=== PATIENT | female | born 1945 | race Caucasian/White ===

== ENCOUNTER → 2016-11-16 | Outpatient (CLI) | payer MEDICARE, BC ==
[2016-11-16 13:22] LABS: HEMATOCRIT 37.2 % (37.0-47.0); HEMOGLOBIN 12.6 g/dl (12.5-16.0); MEAN CELL VOLUME 89 fl (80.0-100.0); MEAN CORPUSCULAR HEMOGLOBIN 30 pg (27.0-31.0); MEAN CORPUSCULAR HGB CONC 34 g/dl (33.0-37.0); MEAN PLATELET VOLUME 9.4 fl (7.4-10.4); PLATELET COUNT 274 K/mm3 (130-400); RED BLOOD COUNT 4.17 M/mm3 (4.10-5.30); REDCELL DISTRIBUTION WIDTH-CV 13.8 % (11.5-14.5); WHITE BLOOD COUNT 6.6 K/mm3 (4.8-10.8)
== END ==
LOC: COL.LAB 12:22
PROVIDERS: Specialist
DX: Z01.812 Encounter for preprocedural laboratory examination (principal)

== ENCOUNTER 2018-12-12 15:45 | Outpatient (RCR) | payer MEDICARE, BC | END 2018-12-12 16:02 | disposition home or self-care (01) | LOC: WSPT 15:45 | DX: M25.512 Pain in left shoulder (principal) ==

== ENCOUNTER 2024-03-24 13:31 | Inpatient (IN) | payer MEDICARE, BC ==
[~2024-03-24] VITALS: Ht 162.6 cm; Wt 69.4 kg
[2024-03-24] MEDS ORDERED: NS 1,000 ML IV ONE (14:15)
[2024-03-24 14:23] LABS: BASO # 0.1 K/mm3 (0.0-0.2); BASO % 0.4 % (0.0-2.0); EOS % 0.2 % (0.0-4.0); GRAN # 9.6 K/mm3 (1.4-6.5); GRAN % 73.3 % (42.2-75.2); HEMATOCRIT 37.9 % (37.0-47.0); HEMOGLOBIN 12.9 g/dl (12.5-16.0); LYMPH # 2.4 K/mm3 (1.2-3.4); LYMPH % 18.6 % (20.0-51.0); MEAN CELL VOLUME 88 fl (80.0-100.0); MEAN CORPUSCULAR HEMOGLOBIN 30 pg (27-31); MEAN CORPUSCULAR HGB CONC 34 g/dl (33.0-37.0); MEAN PLATELET VOLUME 9.3 fl (7.4-10.4); MONO # 0.9 K/mm3 (0.1-0.6); MONO % 7.1 % (1.7-9.3); PLATELET COUNT 311 K/mm3 (130-400); RED BLOOD COUNT 4.31 M/mm3 (4.10-5.30); REDCELL DISTRIBUTION WIDTH-CV 13.6 % (11.5-14.5)
[2024-03-24 14:28] LABS: PROTHROMBIN TIME 11.1 SECONDS (9.7-12.8)
[2024-03-24 14:37] LABS: ALANINE AMINOTRANSFERASE 21 U/L (0-55); ALBUMIN 4.3 g/dL (3.4-4.8); ALKALINE PHOSPHATASE 88 U/L (40-150); ANION GAP 12 mmol/L (7-16); AST,SGOT 29 U/L (5-34); BILIRUBIN,TOTAL 0.4 mg/dL (0.2-1.2); BLOOD UREA NITROGEN 8 mg/dL (10-20); CALCIUM 9.6 mg/dL (8.4-10.2); CHLORIDE 95 mEq/L (98-107); CREATININE, serum 0.77 mg/dL (0.57-1.11); GLUCOSE 101 mg/dL (70-99); POTASSIUM 3.8 mEq/L (3.5-4.5); SODIUM 129 mEq/L (136-145); TOTAL PROTEIN 7.8 g/dl (6.2-8.1)
[2024-03-24 14:44] LABS: TROPONIN-I < 0.010 ng/mL (0.00-0.033)
[2024-03-24] MEDS ORDERED: Iohexol 300 - 100 ML VIAL IV ONE (15:01)
[2024-03-24] MEDS ORDERED: NS 100 ML IV SCH (15:02)
[2024-03-24 16:30] LABS: URINE APPEARANCE CLEAR (CLEAR/HAZY); URINE BLOOD NEGATIVE (NEGATIVE); URINE COLOR YELLOW (YELLOW); URINE GLUCOSE NEGATIVE (NEGATIVE); URINE KETONE TRACE (NEGATIVE); URINE NITRATE NEGATIVE (NEGATIVE); URINE PROTEIN(semi-quant) NEGATIVE (NEGATIVE); URINE UROBILINOGEN 0.2 E.U/dL (0.2-1.0)
[2024-03-24 16:37] LABS: COLLECTION METHOD CLEAN CATCH
[2024-03-24] MEDS ORDERED: Aspirin 325 MG TAB PO ONE (17:15)
[2024-03-24] MEDS ORDERED: ESTRACE2 MG PO (17:31)
[2024-03-24] MEDS ORDERED: Acetaminophen 500 MG TAB PO PRN (17:45)
--- NOTE | 2024-03-24 18:10 | NUR ---
arrived to room 353 per WC from ED, alert and oriented, assistedout of WC and into bed, dysphagia screen completed,
[2024-03-24 18:32] VITALS: BP 179/83; PULSE 79; TEMP 98
--- NOTE | 2024-03-24 18:41 | NUR ---
resting in bed, adult admission intake assessment completed and med rec, see intervention for further inf
--- NOTE | 2024-03-24 18:53 | NUR ---
bedside shift report given to SALLY Nicholson
[2024-03-24 19:05] VITALS: BP_SYST 179
[2024-03-24 20:08] VITALS: BP 133/74; PULSE 72; TEMP 98.2
[2024-03-24 20:30] VITALS: BP_SYST 133
[2024-03-24] MEDS ORDERED: Atorvastatin 80 MG TAB PO SCH (21:00)
[2024-03-24 23:38] VITALS: BP 116/69; PULSE 70; TEMP 98.2
[2024-03-25] VITALS (12 sets, daily range): BP systolic 116–151; BP diastolic 69–78; PULSE 65–83; TEMP 97.5–98
--- NOTE | 2024-03-25 06:04 | NUR ---
Patient has denied having pain and discomfort this shift. Stoke symptoms resolved. Aware of plan for MRI of brain and echo today. Voices no questions, needs, or concerns at this time. In bed with call light within reach.
[2024-03-25 06:40] LABS: BASO % 0.6 % (0.0-2.0); EOS # 0.1 K/mm3 (0.0-0.7); EOS % 1.1 % (0.0-4.0); GRAN # 3.9 K/mm3 (1.4-6.5); GRAN % 53.7 % (42.2-75.2); HEMOGLOBIN 12.2 g/dl (12.5-16.0); LYMPH # 2.5 K/mm3 (1.2-3.4); LYMPH % 34.4 % (20.0-51.0); MEAN CELL VOLUME 88 fl (80.0-100.0); MEAN CORPUSCULAR HEMOGLOBIN 30 pg (27-31); MEAN CORPUSCULAR HGB CONC 35 g/dl (33.0-37.0); MEAN PLATELET VOLUME 9.3 fl (7.4-10.4); MONO # 0.7 K/mm3 (0.1-0.6); MONO % 9.9 % (1.7-9.3); PLATELET COUNT 271 K/mm3 (130-400); RED BLOOD COUNT 4.02 M/mm3 (4.10-5.30); REDCELL DISTRIBUTION WIDTH-CV 13.8 % (11.5-14.5)
[2024-03-25 06:51] LABS: HEMATOCRIT 35.4 % (37.0-47.0)
[2024-03-25 07:02] LABS: ALBUMIN 3.7 g/dL (3.4-4.8); BILIRUBIN,TOTAL 0.4 mg/dL (0.2-1.2); CHOLESTEROL RISK RATIO 2.5; CREATININE, serum 0.74 mg/dL (0.57-1.11); POTASSIUM 3.9 mEq/L (3.5-4.5); TOTAL PROTEIN 6.8 g/dl (6.2-8.1)
--- NOTE | 2024-03-25 07:53 | NUR ---
Patient was taken for MRI.
[2024-03-25] MEDS ORDERED: Aspirin 325 MG TAB PO SCH (09:00)
--- NOTE | 2024-03-25 09:21 | NUR ---
marble worker met with pt to discuss discharge planning. She reports to live with her , Nuno [phone] in [place]. She sees Dr. Vann for PCP needs and obtains medications from [facility] with no difficulties. She verified her insurance as Medicare A and B and [employer]. She reports to be independent with [facility] and uses no DME. She states her is DPO[employer] and he should have a copy at home. Pt has no concerns for falls or mobility. PT/OT Pending Discharge Plan: home
--- NOTE | 2024-03-25 10:10 | NUR ---
Patient resting in bed, alert and oriented x 4, ECHO, MRI, done. PT already worked with her. Denies any weakness, states feeling ok. No further needs at this time, call light within reach.
--- NOTE | 2024-03-25 13:32 | NUR ---
Oracle Database Analyst spoke with OT who recommends outpatient OT and ST for patient, not PT needs.
[2024-03-25] MEDS ORDERED: LIPITOR 80MG80 MG PO (15:40)
--- NOTE | 2024-03-25 20:00 | NUR ---
Pt. resting in bed upon entry. Administered scheduled meds per OCT. Pt. refused lovenox injection. Refusal documented. Shift assessment complete. No outstanding findings at this time. Stroke scale complete. Pt. reports visual deficit to L eye. Pt. denies double or blurred vision; states vision is "just not there." Otherwise, pt. did not score on stroke scale. She is A&O x4 and obeys verbal commands. Motor function does not appear compromised. Facial expression and movement is symmetrical. No complaints or requests at this time. Call light in reach.
[2024-03-26] VITALS (7 sets, daily range): BP systolic 123–139; BP diastolic 69–76; PULSE 64–78; TEMP 97.7–97.9
--- NOTE | 2024-03-26 05:34 | NUR ---
Pt. had uneventful night. Pt. rested in bed w/ eyes closed, respirations even and unlabored through most of the night. VSS and stroke scale scores very low. Pt continues to report visual deficit to the L eye. However, she did report improvement from the beginning of the shift. Per bedside shift report, the pt. was confused during the day. This nurse did not observe any confusion from the pt. Pt. remained A&O x4 through the night and was able to follow verbal commands. No complaints or request from the pt. at this time. Call light in reach.
[2024-03-26 06:38] LABS: BASO % 0.4 % (0.0-2.0); EOS # 0.2 K/mm3 (0.0-0.7); EOS % 1.8 % (0.0-4.0); GRAN # 4.7 K/mm3 (1.4-6.5); GRAN % 56.8 % (42.2-75.2); HEMOGLOBIN 12.5 g/dl (12.5-16.0); LYMPH # 2.6 K/mm3 (1.2-3.4); LYMPH % 31.3 % (20.0-51.0); MEAN CELL VOLUME 88 fl (80.0-100.0); MEAN CORPUSCULAR HEMOGLOBIN 30 pg (27-31); MEAN CORPUSCULAR HGB CONC 35 g/dl (33.0-37.0); MEAN PLATELET VOLUME 9.2 fl (7.4-10.4); MONO # 0.8 K/mm3 (0.1-0.6); MONO % 9.3 % (1.7-9.3); PLATELET COUNT 276 K/mm3 (130-400); RED BLOOD COUNT 4.12 M/mm3 (4.10-5.30); REDCELL DISTRIBUTION WIDTH-CV 13.9 % (11.5-14.5)
[2024-03-26 06:40] LABS: HEMATOCRIT 36.1 % (37.0-47.0)
[2024-03-26 07:08] LABS: CALCIUM 9.1 mg/dL (8.4-10.2); CREATININE, serum 0.77 mg/dL (0.57-1.11); POTASSIUM 4.2 mEq/L (3.5-4.5)
[2024-03-26] MEDS ORDERED: ASPIRIN E.C. 8181 MG PO (07:58)
--- NOTE | 2024-03-26 09:00 | NUR ---
Patient resting in bed, alert and oriented x 4, states feeling ok, just her vision on right eye is not getting better. Assessment completed, no further needs at this time. Call light within reach.
--- NOTE | 2024-03-26 12:31 | NUR ---
Patient provided with discharge information, all questions answered. IV access was discontinued. Pt accompanied by BUTCHER SUPERVISOR to the hospital entrance.
--- NOTE | 2024-03-26 16:06 | NUR ---
Ditching Machine Engineer contacted [facility] [employer] and scheduled OT for 04/03/[address] 04/07/24 at 0945. SW contacted patient to provide those appointments. SAL Salgado faxed referral and discharge orders.
== END 2024-03-26 12:35 | disposition home or self-care (01) | DRG 65 ==
LOC: COL.ER 13:31 → MEDICAL 17:08 → EDBEDREQTM 17:51 → MEDICAL 03-26 12:35
PROVIDERS: Emergency Medicine; Physician Assistant; ADMIT Internal Medicine
DX: I63.532 Cerebral infarction due to unspecified occlusion or stenosis of left posterior cerebral artery (principal); E87.1 Hypo-osmolality and hyponatremia; R47.1 Dysarthria and anarthria; I34.0 Nonrheumatic mitral (valve) insufficiency; R29.701 NIHSS score 1; R41.3 Other amnesia; Z90.710 Acquired absence of both cervix and uterus
CPT/HCPCS: J7030; Q3014; Q9967